=== PATIENT | female | born 1955 | race Caucasian/White ===

== ENCOUNTER → 2017-02-05 | Outpatient (CLI) | payer OTHER ==
--- NOTE | ~2017-02-05 | CR150 ---
[facility] A Service of [facility] RADIOLOGY TEXT RESULTS PATIENT: MARILEE AGUILA LOCATION: [facility] : 55 UNIT #: [id number] AGE: [address]: ILEANA VALENZUELA MD SEX: F ORDER DR: [id number] [facility]. [place], [place] [address] [id number] O MR#: [id number] #: [id number] NAME: MARILEE AGUILA : 1955 SEX: F STUDY DATE/TIME: 02/05/2017 18:18 UNIT: [facility] ROOM: STUDY DESCRIPTION: CR Hip Min 2 Views Lt Attending Physician: Ileana Valenzuela M.D. Ordering Physician: Ileana Valenzuela M.D. Primary Care Physician: Ileana Valenzuela M.D. MEDICAL IMAGING REPORT This report is preliminary unless electronic signature is present EXAM AP pelvis with frog view of the left hip (2 images) DATE 02/05/2017 HISTORY 61-year-old female with left hip pain which began 6 months ago. No known injury. Hurts when laying down. COMPARISON None. FINDINGS There is mild symmetric bilateral hip joint space narrowing. There is very mild superior lateral acetabular osteophyte formation on the left. No fracture. No dislocation. Benign-appearing bone island in the right femoral neck. No sacroiliac joint pubic symphysis diastasis. Imaged lumbar spine appears normal. IMPRESSION Very mild left acetabular spurring and mild symmetric bilateral hip joint space narrowing. No acute abnormality is seen within the pelvis or within the left hip. Dictated by... Nguyen Summers M.D. THIS IS AN ELECTRONICALLY VERIFIED REPORT Nguyen Summers M.D. at 02/07/2017 8:32 AM H/to TD: 02/06/2017 13:07 [facility] A Service of [facility] RADIOLOGY TEXT RESULTS PATIENT: MARILEE AGUILA LOCATION: [facility] #: [id number] : 55 UNIT #: [id number] AGE: [address]: ILEANA VALENZUELA MD SEX: F ORDER DR: JOB #: [id number] MEDICAL IMAGING REPORT Page 1 of 1 COPY
== END | disposition home or self-care (01) ==
LOC: CRAD 17:56
DX: M25.552 Pain in left hip (principal); M76.9 Unspecified enthesopathy, lower limb, excluding foot
CPT/HCPCS: 73502